=== PATIENT | female | born 1930 | race Caucasian/White ===

== ENCOUNTER 2017-11-20 02:28 | Emergency (ER) | payer OTHER ==
[~2017-11-20] VITALS: Ht 149.9 cm; Wt 40.0 kg
[~2017-11-20 02:28] MED LIST: ALBU1NEB10 INH; DEXT5LIQ23 PO; FERR1TAB62 PO; FRRS300 PO; GABA100C13 PO; HYDR-5688 PO; LVQ750 PO; MOME100A INH; NRN100 PO; OMEP40CA41 PO; TIOTCAP INH
[2017-11-20 02:32] VITALS: TEMP 36.7; Ht 149.9 cm; Wt 40.0 kg
[2017-11-20] MEDS ORDERED: ALBUT/IPRATROP 3MG/0.5MG NEB 3 ML VIAL INH STA (02:57)
[2017-11-20] MEDS ORDERED: METHYLPREDNISOLONE 125 MG VIAL IV STA (02:57)
--- NOTE | 2017-11-20 03:02 | EMERGENCY ROOM VISIT NOTE ---
History Report prepared by Roxana: Frieda Ruiz Under the Supervision of: Dr. Chhaya Crowley D.O. First contact with patient: 02:40 Chief Complaint: RESPIRATORY PROBLEMS Stated Complaint: ASTHMA, PAIN, COUGH History of Present Illness The patient is an 87 year old female who presents to the Emergency Room with complaints of constant respiratory problems beginning yesterday afternoon. Per daughter, the patient has asthma and has been coughing. Per daughter, the patient returned from the [facility] yesterday afternoon and reports that the patient was last hospitalized August 15 in the [facility] for respiratory problems. Her daughter states that she does not know the last time the patient was on steroids and reports that the flight from the [facility] was 28 hours long. Her daughter reports that the patient is seeing her doctor in 5 days. Source of History: patient, family (daughter) Onset: yesterday afternoon Position: other (generalized ) Quality: other (respiratory problems ) Timing: constant Associated Symptoms: + cough Review of Systems See HPI for pertinent positives & negatives. A total of 10 systems reviewed and were otherwise negative. Past Medical & Surgical Medical Problems: (1) Asthma (2) Bronchitis (3) Heart disease (4) Hypertension Family History Cancer Diabetes mellitus FH: heart disease Hypertension Social History Smoking Status: Never Smoker Alcohol Use: none Marital Status: Housing Status: lives with family Occupation Status: retired Current/Historical Medications Scheduled Amlodipine (Norvasc), 5 MG PO DAILY Azithromycin (Zithromax Z-Ramirez), 0 PO UD Budesonide/Formoterol Fumarate (Symbicort 160/4.5 Inhaler ), 2 PUFFS INH BID Ipratropium-Albuterol (Combivent Respimat), 2 PUFFS INH QID Multiple Vitamins W/ Minerals (Centrum Silver 50+Women), 1 TAB PO DAILY Prednisone (Prednisone Tab), 2 TABS PO DAILY Tiotropium [place] (Spiriva Handihaler), 1 CAP INH DAILY Scheduled PRN Albuterol Hfa (Ventolin Hfa), 2-4 PUFFS INH Q6H PRN for SOB/Wheezing [robitussin dm], 1 DOSE PO DIRECTED PRN for Cough Allergies Coded Allergies: No Known Allergies (Unverified , 11/20/17) Physical Exam Vital Signs Date Time Temp Pulse Resp B/P (MAP) Pulse Ox O2 Delivery O2 Flow Rate FiO2 11/20/17 05:19 78 20 141/82 93 Room Air 11/20/17 04:00 95 20 128/76 93 Room Air 11/20/17 03:39 98 28 145/79 94 Room Air 11/20/17 03:15 89 11/20/17 03:10 94 Room Air 11/20/17 02:32 36.7 94 20 129/77 92 Room Air Physical Exam HEENT: Head - normocephalic and atraumatic Pupils are equal, round, and reactive to light. Extraocular eye muscles are intact, and sclera are anicteric. Nose - moist nasal mucosa without discharge. Mouth - moist buccal mucosa. Oropharynx is nonerythematous and there is no tonsillar exudate or edema noted. Neck: Supple; no JVD, nuchal rigidity, cervical lymphadenopathy. Heart: Regular rate and rhythm. There is a normal S1 and S2 with no murmurs, clicks, or gallops appreciated. Lungs: Expiratory wheezing, left is worse than the right. No rales or rhonchi. Abdomen: Soft, nondistended, with good bowel sounds. Pain to palpation over the left flank. There are no palpable pulsatile masses or hepatosplenomegaly. There is no guarding, rigidity, or rebound noted. Extremities: No evidence of cyanosis, clubbing, or edema. There are easily palpable peripheral pulses. Skin: warm and dry with good turgor and no rashes. Medical Decision & Procedures ER Provider Diagnostic Interpretation: Radiology results as stated below per my review. Chest X-Ray: Mild peribronchiolar cuffing. Calcified aorta. No cardiomegaly. Compared to 07/2014. Radiology results as stated below per my review and [facility]. CT CHEST With Contrast: Comparison: CT chest 07/17/14 No evidence of pulmonary embolism. Evaluation for segmental and smaller pulmonary emboli is limited by motion artifact. No aortic aneurysm or dissection. Atherosclerotic calcifications of the aorta and its branches. Coronary artery calcifications. Bronchial wall thickening and partial opacification of bilateral upper lobe and left lower lobe bronchi, suggesting bronchitis. Evaluation of lung parenchyma also limited by motion artifact. Small region of groundglass density in right middle lobe measuring up to 1.2 cm (image 42, series 400). This is similar to prior exam, but slow-growing neoplasm not excluded. Thyroid nodules. Laboratory Results 11/20/17 03:10 Red Blood Count 4.18, Mean Corpuscular Volume 90.0, Mean Corpuscular Hemoglobin 30.9, Mean Corpuscular Hemoglobin Concent 34.3, Mean Platelet Volume 8.7, Neutrophils (%) (Auto) 39.4, Lymphocytes (%) (Auto) 38.9, Monocytes (%) (Auto) 8.4, Eosinophils (%) (Auto) 12.2, Basophils (%) (Auto) 1.0, Neutrophils # (Auto ) 3.25, Lymphocytes # (Auto) 3.20, Monocytes # (Auto) 0.69, Eosinophils # (Auto ) 1.00, Basophils # (Auto) 0.08 11/20/17 03:10 Test 11/20/17 03:10 11/20/17 03:34 White Blood Count 8.23 K/uL (4.8-10.8) Red Blood Count 4.18 M/uL (4.2-5.4) Hemoglobin 12.9 g/dL (12.0-16.0) Hematocrit 37.6 % (37-47) Mean Corpuscular Volume 90.0 fL (80-100) Mean Corpuscular Hemoglobin 30.9 pg (25-34) Mean Corpuscular Hemoglobin Concent 34.3 g/dl (32-36) Platelet Count 251 K/uL (130-400) Mean Platelet Volume 8.7 fL (7.4-10.4) Neutrophils (%) (Auto) 39.4 % Lymphocytes (%) (Auto) 38.9 % Monocytes (%) (Auto) 8.4 % Eosinophils (%) (Auto) 12.2 % Basophils (%) (Auto) 1.0 % Neutrophils # (Auto) 3.25 K/uL (1.4-6.5) Lymphocytes # (Auto) 3.20 K/uL (1.2-3.4) Monocytes # (Auto) 0.69 K/uL (0.11-0.59) Eosinophils # (Auto) 1.00 K/uL (0-0.5) Basophils # (Auto) 0.08 K/uL (0-0.2) RDW Standard Deviation 44.9 fL (36.4-46.3) RDW Coefficient of Variation 13.7 % (11.5-14.5) Immature Granulocyte % (Auto) 0.1 % Immature Granulocyte # (Auto) 0.01 K/uL (0.00-0.02) Anion Gap 5.0 mmol/L (3-11) Est Creatinine Clear Calc Drug Dose 31.7 ml/min Estimated GFR () 75.6 Estimated GFR (Non- 65.3 BUN/Creatinine Ratio 17.1 (10-20) Calcium Level 8.9 mg/dl (8.5-10.1) Troponin I < 0.015 ng/ml (0-0.045) Pro-B-Type Natriuretic Peptide 359 pg/ml (0-1800) Bedside D-Dimer > 450 ng/mlFEU (0-450) Laboratory results per my review. Medications Administered Medications (Trade) Dose Ordered Sig/Deena Route Start Time Stop Time Status Last Admin Dose Admin Albuterol/ Ipratropium (Duoneb) 3 ml NOW STAT INH 11/20/17 02:57 11/20/17 02:59 DC 11/20/17 03:06 3 ML Methylprednisolone Sodium Succinate (Solu-Medrol IV) 125 mg NOW STAT IV 11/20/17 02:57 11/20/17 02:59 DC 11/20/17 03:22 125 MG Procedure Medications administered: Methylprednisolone Sodium Succinate IV Duoneb INH ECG Per My Interpretation Indication: SOB/dyspnea Rate (beats per minute): 90 Rhythm: normal sinus Findings: no acute ischemic change, no ectopy, other (normal axis) ED Course 0249: Past medical records reviewed. The patient was evaluated in room A12B. A complete history and physical exam was performed. An IV lock was initiated and labs are drawn as above. A 12-lead EKG was obtained as described above. 0257: Ordered Methylprednisolone Sodium Succinate 125 mg IV, Duoneb 3 ml INH. A chest x-ray was obtained as described above. 0335: I checked on the patient. She is breathing more easily after the breathing treatment but is still coughing. Vital signs are stable. She will go for a CT scan. 0515: Upon reevaluation, the patient looks great and feels well. She is in no acute respiratory distress. I discussed findings and results of the CT scan with her and her daughter. She verbalized agreement of the treatment plan. She was discharged home. Medical Decision The patient is a 87 year old female who presents to the ED with respiratory problems. Differential diagnosis includes asthma exacerbation, pneumonia, pulmonary embolism, and bronchitis. Lab results showed No leukocytosis Stable H and H Negative troponin and BNP Normal renal function Normal glucose This is a an 87-year-old female patient with a history of asthma who presents to the emergency department with increased cough and shortness of breath. Patient just returned from a long airplane ride from the [facility]. The daughter explains that she has been using her inhalers frequently without relief of her symptoms. Chest x-ray had moderate peribronchial cuffing and there was some concern for bronchitis but no obvious signs of pneumonia. The patient had an elevated d-dimer and went for CT scan to rule out PE. There is no evidence of PE but some findings consistent with bronchitis. I reviewed the specific results of the CT scan with the patient and her daughter and requested that she have close follow-up with the PCP for repeat CAT scan within 6 months to year to rule out an enlarging mass. In the meantime, the patient was encouraged to use her Spiriva and Symbicort. I will prescribe Combivent to use every 6 hours and then she can use her rescue inhaler-Ventolin as needed in between. The patient will take a course of Zithromax as well as a burst of prednisone. The patient is scheduled to see a new PCP in 5 days. At that time , the patient can be reevaluated and they can order a nebulizer if need be. Medication Reconcilliation Current Medication List: was personally reviewed by me Blood Pressure Screening Patient's blood pressure: Normal blood pressure Impression Primary Impression: Bronchitis Additional Impression: Asthma exacerbation Scribe Attestation The scribe's documentation has been prepared under my direction and personally reviewed by me in its entirety. I confirm that the note above accurately reflects all work, treatment, procedures, and medical decision making performed by me. Departure Information Dispostion Home / Self-Care Prescriptions Azithromycin (ZITHROMAX Z-RAMIREZ) 250 Mg Tab 0 PO UD, #1 TAB 2 TABS DAY 1, THEN 1 TAB DAILY FOR 4 DAYS. Prov: Chhaya Crowley D.O. 11/20/17 Prednisone (Prednisone Tab) 20 Mg Tab 2 TABS PO DAILY for 4 Days, #8 TAB Prov: Chhaya Crowley D.O. 11/20/17 Ipratropium-Albuterol (COMBIVENT RESPIMAT) 1 Aer Aer 2 PUFFS INH QID, #1 INH Prov: Chhaya Crowley D.O. 11/20/17 Referrals No Doctor, Assigned (PCP) Alexis Avila M.D. Forms HOME CARE DOCUMENTATION FORM, IMPORTANT VISIT INFORMATION, WORK / SCHOOL INSTRUCTIONS Patient Instructions ED Bronchitis Asthmatic, My [facility] Additional Instructions Rest. Take prednisone daily for 4 days Take zithromax as directed. Combivent - 2 puffs every 6 hours then use ventolin as a rescue inhaler in between as needed. Follow up on Monday with PCP Problem Qualifiers Additional Impression: Asthma exacerbation Asthma severity: moderate Asthma persistence: persistent Qualified Codes: J45.41 - Moderate persistent asthma with (acute) exacerbation
[2017-11-20 03:10] VITALS: O2SAT 94
[2017-11-20 03:22] LABS: BASO ABS # 0.08 K/uL (0-0.2); EOS % 12.2 %; HEMATOCRIT 37.6 % (37-47); HEMOGLOBIN 12.9 g/dL (12.0-16.0); IG# 0.01 K/uL (0.00-0.02); LYMPH % 38.9 %; MEAN CORPUSCULAR HEMOGLOBIN 30.9 pg (25-34); MEAN CORPUSCULAR HGB CONC 34.3 g/dl (32-36); MEAN PLATELET VOLUME 8.7 fL (7.4-10.4); MONO % 8.4 %; MONO ABS # 0.69 K/uL (0.11-0.59); NEUT % 39.4 %; NEUT ABS # 3.25 K/uL (1.4-6.5); PLATELET COUNT 251 K/uL (130-400); RED CELL DISTRIBUTION WIDTH CV 13.7 % (11.5-14.5); RED CELL DISTRIBUTION WIDTH SD 44.9 fL (36.4-46.3); WHITE BLOOD COUNT 8.23 K/uL (4.8-10.8)
[2017-11-20] MEDS ORDERED: MULT-1092 PO (03:33)
[2017-11-20] MEDS ORDERED: AMLO-110 PO (03:33)
[2017-11-20] MEDS ORDERED: SYMIN160 INH (03:34)
[2017-11-20] MEDS ORDERED: robitussin dm PO (03:36)
[2017-11-20] MEDS ORDERED: VNTHFA/IN INH (03:37)
[2017-11-20 03:39] LABS: BLOOD UREA NITROGEN 14 mg/dl (7-18); CALCIUM 8.9 mg/dl (8.5-10.1); CARBON DIOXIDE 28 mmol/L (21-32); CREATININE 0.82 mg/dl (0.60-1.20); GLUCOSE 93 mg/dl (70-99); POTASSIUM 3.7 mmol/L (3.5-5.1); SODIUM 138 mmol/L (136-145)
[2017-11-20] MEDS ORDERED: OPTIRAY 320 IV PRN (04:00)
[2017-11-20 05:19] VITALS: BP 141/82; PULSE 78; O2SAT 93
[2017-11-20] MEDS ORDERED: IPRA1AER2 INH (05:19)
[2017-11-20] MEDS ORDERED: AZITTAB PO (05:19)
[2017-11-20] MEDS ORDERED: PRED20TA2 PO (05:19)
--- NOTE | 2017-11-20 06:32 | DIAGNOSTIC IMAGING REPORT ---
CHEST 2 VIEWS ROUTINE HISTORY: 87 years-old Female asthma/cough acute cough with atypical chest pain COMPARISON: Chest radiograph 07/27/2014, CTA of the chest 11/20/2014 TECHNIQUE: PA and lateral views of the chest FINDINGS: Cardiomediastinal and hilar silhouettes are within normal limits. Atherosclerosis of the aorta. No pneumothorax, pleural effusion, focal airspace consolidation or overt pulmonary edema. The lungs are mildly hyperinflated. Degenerative changes of the spine are noted. IMPRESSION: Mild hyperinflation without acute process. The above report was generated using voice recognition software. It may contain grammatical, syntax or spelling errors. Electronically signed by: David Minaya M.D. 11/20/2017 6:31 AM Dictated Date/Time: 11/20/2017 6:30 AM
--- NOTE | 2017-11-20 06:57 | DIAGNOSTIC IMAGING REPORT ---
(CHEST FOR PE) ANGIO WITH CT DOSE: 165.83 mGy.cm HISTORY: 87 years-old Female presents with acute cough and chest pain TECHNIQUE: Multiple CTA images of the chest were obtained after the intravenous administration of 66 ml Optiray 320. Coronal and sagittal MIPS were obtained from the axial data set and were submitted for review. A dose lowering technique was utilized adhering to the principles of ALARA. COMPARISON: Chest radiograph of same day, CTA chest 07/27/2014 FINDINGS: CTA: Mild multichamber cardiac enlargement. Coronary arterial calcifications are noted. No aortic aneurysm or dissection. Moderate to severe calcification of the aorta. Proximal great vessels appear patent. Evaluation of the segmental and subsegmental pulmonary arterial branches is limited secondary to respiratory motion. No focal filling defects identified to suggest pulmonary thromboembolic disease. CT CHEST: Bilateral thyroid nodules measure up to 10 mm on the right. There is no pathologic adenopathy identified. No pneumothorax, pleural effusion or lobar airspace consolidation. Minimal dependent subsegmental bibasilar atelectasis. The central airways are patent. There is a 1.5 cm groundglass opacity of the right middle lobe seen on image 119 series 4 which is unchanged from comparison study 07/27/2014. No acute process of the imaged upper abdomen. Soft tissues are unremarkable. Bones appear intact. Multilevel degenerative changes about the spine. IMPRESSION: 1. No acute intrathoracic abnormality identified, specifically no acute aortic pathology or evidence of pulmonary thromboembolic disease. 2. 1.5 cm groundglass opacity of the right middle lobe appears stable from 07/27/2014 favoring focal area of scarring with low-grade neoplasm felt to be less likely. 3. No lobar airspace consolidation or pathologic adenopathy. The above report was generated using voice recognition software. It may contain grammatical, syntax or spelling errors. Electronically signed by: David Minaya M.D. 11/20/2017 6:55 AM Dictated Date/Time: 11/20/2017 6:48 AM
== END 2017-11-20 05:17 | disposition home or self-care (01) ==
LOC: C.EDB 02:29 → C.EDA 05:17
DX: J40 Bronchitis, not specified as acute or chronic (principal); J45.41 Moderate persistent asthma with (acute) exacerbation; I10 Essential (primary) hypertension; Z79.51 Long term (current) use of inhaled steroids; Z79.899 Other long term (current) drug therapy

== ENCOUNTER 2017-11-28 11:15 | Emergency (ER) | payer OTHER ==
[~2017-11-28] VITALS: Ht 142.2 cm; Wt 39.0 kg
[~2017-11-28 11:15] MED LIST changes: -ALBU1NEB10 INH; +AMLO-110 PO; +AZITTAB PO; -DEXT5LIQ23 PO; -FERR1TAB62 PO; -FRRS300 PO; -GABA100C13 PO; -HYDR-5688 PO; +IPRA1AER2 INH; -LVQ750 PO; -MOME100A INH; +MULT-1092 PO; -NRN100 PO; -OMEP40CA41 PO; +SYMIN160 INH; +VNTHFA/IN INH; +robitussin dm PO
[2017-11-28 11:18] VITALS: TEMP 36.8; Ht 142.2 cm; Wt 39.0 kg
[2017-11-28] MEDS ORDERED: ACETAMINOPHEN IV 100 ML IV STA (11:55)
[2017-11-28] MEDS ORDERED: SODIUM CHLORIDE 0.9% 500ML 500 ML IV STA (11:55)
[2017-11-28] MEDS ORDERED: ONDANSETRON INJ 2 MG/ML 2 ML VIAL IV STA (11:55)
[2017-11-28] MEDS ORDERED: FAMOTIDINE 20MG/5ML IV PUSH IV STA (11:55)
[2017-11-28] MEDS ORDERED: SPRIN/30 INH (12:05)
[2017-11-28] MEDS ORDERED: OPTIRAY 320 IV PRN (12:15)
[2017-11-28 12:26] LABS: BASO % 0.2 %; BASO ABS # 0.02 K/uL (0-0.2); EOS % 3.8 %; EOS ABS # 0.41 K/uL (0-0.5); HEMATOCRIT 39.4 % (37-47); HEMOGLOBIN 13.4 g/dL (12.0-16.0); IG# 0.02 K/uL (0.00-0.02); LYMPH % 25.2 %; LYMPH ABS # 2.69 K/uL (1.2-3.4); MEAN CELL VOLUME 89.7 fL (80-100); MEAN CORPUSCULAR HEMOGLOBIN 30.5 pg (25-34); MEAN PLATELET VOLUME 8.3 fL (7.4-10.4); MONO % 7.5 %; NEUT % 63.1 %; NEUT ABS # 6.74 K/uL (1.4-6.5); PLATELET COUNT 245 K/uL (130-400); RED CELL DISTRIBUTION WIDTH SD 45.7 fL (36.4-46.3); WHITE BLOOD COUNT 10.68 K/uL (4.8-10.8)
[2017-11-28 12:56] LABS: ALBUMIN 3.8 gm/dl (3.4-5.0); ALKALINE PHOSPHATASE 51 U/L (45-117); ALT/SGPT 37 U/L (12-78); BLOOD UREA NITROGEN 19 mg/dl (7-18); CALCIUM 8.6 mg/dl (8.5-10.1); CARBON DIOXIDE 28 mmol/L (21-32); CREATININE 0.86 mg/dl (0.60-1.20); GLUCOSE 101 mg/dl (70-99); LIPASE 359 U/L (73-393); TOTAL PROTEIN 8.5 gm/dl (6.4-8.2)
[2017-11-28 13:06] LABS: AST/SGOT 18 U/L (15-37); POTASSIUM 4.5 mmol/L (3.5-5.1); SODIUM 132 mmol/L (136-145)
--- NOTE | 2017-11-28 13:43 | DIAGNOSTIC IMAGING REPORT ---
CT SCAN OF THE ABDOMEN AND PELVIS WITH IV CONTRAST CLINICAL HISTORY: Generalized abdominal pain. Constipation. COMPARISON STUDY: No priors. TECHNIQUE: Following the IV administration of 94 cc of Optiray 320, CT scan of the abdomen and pelvis is performed from the lung bases to the proximal femora. Images are reviewed in the axial, sagittal, and coronal planes. IV contrast was administered without complication. A dose lowering technique was utilized adhering to the principles of ALARA. CT DOSE: 270.51 mGy.cm FINDINGS: Lung bases: The heart is mildly enlarged and without pericardial effusion. The coronary arteries and aortic valve leaflets are densely calcified. There is a small hiatal hernia. Fat-containing Bochdalek hernias are seen at both lung bases. There is no airspace consolidation or pleural effusion. Scarring/atelectasis is noted in the lower lobes. Liver: The contrast-enhanced liver is normal in size, contour, and attenuation. There is no intrahepatic biliary ductal dilatation. The hepatic veins and portal veins are patent. Scattered hepatic hypodensities measuring up to 8 mm likely represent cysts but are too small for definitive characterization. Gallbladder: Unremarkable. Spleen: Normal in size and attenuation. Pancreas: Unremarkable. Adrenal glands: Unremarkable. Kidneys: The contrast enhanced kidneys are atrophic. There is mild bilateral hydronephrosis, likely related to the markedly distended bladder. The kidneys enhance symmetrically. Right renal cysts measure up to 2.5 cm Abdominal vasculature: The abdominal aorta is normal in course and caliber noting advanced atherosclerotic calcification. Bowel: There is no bowel obstruction. Moderate to severe constipation is identified. The colon is redundant/tortuous. The appendix is not identified and reported surgically absent. Peritoneum: There is no intraperitoneal free air or abdominal ascites. Lymphadenopathy: None. Pelvic viscera: The bladder is distended and grossly unremarkable. The uterus is atrophic. No adnexal lesion is seen. Skeletal structures: The skeletal structures are osteopenic. There are moderate compression deformities of L4 and L5. A mild superior end plate compression deformities seen involving L2. There is an age indeterminant and likely chronic insufficiency fracture of the right sacral ala. Lumbosacral spondylosis is observed. There are healed left-sided rib fractures. Advanced sclerotic change is seen at the symphysis pubis. Sclerotic change is also noted in the sacroiliac joints. No lytic or blastic lesions are seen. IMPRESSION: 1. Moderate to severe constipation. 2. No bowel obstruction is seen. 3. There are lumbar compression deformities as well as an insufficiency fracture of the right sacrum as above. These are age indeterminant and likely chronic. Clinical correlation will be required. 4. Mild cardiomegaly. 5. There is mild bilateral hydronephrosis, likely related to the markedly distended bladder. No obstructing lesion is seen. 6. Additional findings as above. Electronically signed by: Skyler Youssef M.D. 11/28/2017 1:42 PM Dictated Date/Time: 11/28/2017 1:33 PM
[2017-11-28] MEDS ORDERED: METOCLOPRAMIDE HCL INJ 5 MG/ML 2 ML VIAL IV STA (13:52)
[2017-11-28] MEDS ORDERED: SOD PHOSPHATE/SOD BIPHOSPHATE ENEMA 132 ML BTL PR STA (13:52)
[2017-11-28] MEDS ORDERED: MAGNESIUM CITRATE 296 ML/BTL PO STA (13:52)
[2017-11-28] MEDS ORDERED: DOCU-94 PO (15:39)
--- NOTE | 2017-11-28 15:46 | EMERGENCY ROOM VISIT NOTE ---
History Report prepared by Roxana: Lino Fraga Under the Supervision of: Dr. Jimy Arevalo M.D. First contact with patient: 11:33 Chief Complaint: ABDOMINAL PAIN Stated Complaint: ABDOMINAL PAIN History of Present Illness The patient is a 87 year old female who presents to the Emergency Room with complaints of constant abdominal pain beginning four hours ago. History obtained per patient's daughter. She states that the patient has also been vomiting. The patient has a history of constipation. Her last normal bowel movement was last night. She describes her recent bowel movements as "hard". The patient has taken Pepto Bismol and a laxative, but nothing has improved her symptoms. She currently complains of nausea. She denies urinary symptoms, fevers , chills, cough, or congestion.. The patient was seen in the ED four days ago for breathing difficulties. She has been eating and drinking normally. Source of History: family (daughter) Onset: Four hours ago Position: abdomen Timing: constant Modifying Factors (Relieving): other (none) Associated Symptoms: + nausea, + vomiting, No fevers, No chills, No cough, No urinary symptoms Note: Negative: congestion. Review of Systems See HPI for pertinent positives and negatives. A total of ten systems were reviewed and were otherwise negative. Past Medical & Surgical Medical Problems: (1) Asthma (2) Bronchitis (3) Heart disease (4) Hypertension Family History Cancer Diabetes mellitus FH: heart disease Hypertension Social History Smoking Status: Never Smoker Alcohol Use: none Marital Status: Housing Status: lives with family Occupation Status: retired Current/Historical Medications Scheduled Amlodipine (Norvasc), 5 MG PO DAILY Budesonide/Formoterol Fumarate (Symbicort 160/4.5 Inhaler ), 2 PUFFS INH BID Docusate Sodium (Colace), 1 CAP PO BID Ipratropium-Albuterol (Combivent Respimat), 2 PUFFS INH QID Multiple Vitamins W/ Minerals (Centrum Silver 50+Women), 1 TAB PO DAILY Tiotropium [place] (Spiriva Handihaler), 1 CAP INH DAILY Scheduled PRN Albuterol Hfa (Ventolin Hfa), 2-4 PUFFS INH Q6H PRN for SOB/Wheezing [robitussin dm], 1 DOSE PO DIRECTED PRN for Cough Allergies Coded Allergies: No Known Allergies (Unverified , 11/28/17) Physical Exam Vital Signs Date Time Temp Pulse Resp B/P (MAP) Pulse Ox O2 Delivery O2 Flow Rate FiO2 11/28/17 16:04 76 137/72 96 11/28/17 15:13 78 102/53 96 Room Air 11/28/17 13:47 76 140/78 98 Room Air 11/28/17 11:18 36.8 74 18 151/69 97 Room Air Physical Exam GENERAL: Awake, alert, fatigued, uncomfortable-appearing, in no distress HENT: Normocephalic, atraumatic. Oropharynx unremarkable. Mucous membranes are dry. EYES: Normal conjunctiva. Sclera non-icteric. NECK: Supple. No nuchal rigidity. FROM. No JVD. RESPIRATORY: Clear to auscultation. CARDIAC: Regular rate, normal rhythm. Extremities warm and well perfused. Pulses equal. ABDOMEN: Soft, non-distended. Generalized abdominal tenderness. No peritoneal signs. No rebound or guarding. No masses. RECTAL: Deferred. MUSCULOSKELETAL: Chest examination reveals no tenderness. The back is symmetrical on inspection without obvious abnormality. There is no CVA tenderness to palpation. No joint edema. LOWER EXTREMITIES: Calves are equal size bilaterally and non-tender. No edema. No discoloration. NEURO: Normal sensorium. No sensory or motor deficits noted. SKIN: No rash or jaundice noted. Medical Decision & Procedures ER Provider Diagnostic Interpretation: Radiology results as stated below per my review and radiologist interpretation: CT SCAN OF THE ABDOMEN AND PELVIS WITH IV CONTRAST FINDINGS: Lung bases: The heart is mildly enlarged and without pericardial effusion. The coronary arteries and aortic valve leaflets are densely calcified. There is a small hiatal hernia. Fat-containing Bochdalek hernias are seen at both lung bases. There is no airspace consolidation or pleural effusion. Scarring/atelectasis is noted in the lower lobes. Liver: The contrast-enhanced liver is normal in size, contour, and attenuation. There is no intrahepatic biliary ductal dilatation. The hepatic veins and portal veins are patent. Scattered hepatic hypodensities measuring up to 8 mm likely represent cysts but are too small for definitive characterization. Gallbladder: Unremarkable. Spleen: Normal in size and attenuation. Pancreas: Unremarkable. Adrenal glands: Unremarkable. Kidneys: The contrast enhanced kidneys are atrophic. There is mild bilateral hydronephrosis, likely related to the markedly distended bladder. The kidneys enhance symmetrically. Right renal cysts measure up to 2.5 cm Abdominal vasculature: The abdominal aorta is normal in course and caliber noting advanced atherosclerotic calcification. Bowel: There is no bowel obstruction. Moderate to severe constipation is identified. The colon is redundant/tortuous. The appendix is not identified and reported surgically absent. Peritoneum: There is no intraperitoneal free air or abdominal ascites. Lymphadenopathy: None. Pelvic viscera: The bladder is distended and grossly unremarkable. The uterus is atrophic. No adnexal lesion is seen. Skeletal structures: The skeletal structures are osteopenic. There are moderate compression deformities of L4 and L5. A mild superior end plate compression deformities seen involving L2. There is an age indeterminant and likely chronic insufficiency fracture of the right sacral ala. Lumbosacral spondylosis is observed. There are healed left-sided rib fractures. Advanced sclerotic change is seen at the symphysis pubis. Sclerotic change is also noted in the sacroiliac joints. No lytic or blastic lesions are seen. IMPRESSION: 1. Moderate to severe constipation. 2. No bowel obstruction is seen. 3. There are lumbar compression deformities as well as an insufficiency fracture of the right sacrum as above. These are age indeterminant and likely chronic. Clinical correlation will be required. 4. Mild cardiomegaly. 5. There is mild bilateral hydronephrosis, likely related to the markedly distended bladder. No obstructing lesion is seen. 6. Additional findings as above. Electronically signed by: Skyler Youssef M.D. 11/28/2017 1:42 PM Laboratory Results 11/28/17 12:16 Red Blood Count 4.39, Mean Corpuscular Volume 89.7, Mean Corpuscular Hemoglobin 30.5, Mean Corpuscular Hemoglobin Concent 34.0, Mean Platelet Volume 8.3, Neutrophils (%) (Auto) 63.1, Lymphocytes (%) (Auto) 25.2, Monocytes (%) (Auto) 7.5, Eosinophils (%) (Auto) 3.8, Basophils (%) (Auto) 0.2, Neutrophils # (Auto) 6.74, Lymphocytes # (Auto) 2.69, Monocytes # (Auto) 0.80, Eosinophils # (Auto) 0.41, Basophils # (Auto) 0.02 11/28/17 12:16 Test 11/28/17 12:16 White Blood Count 10.68 K/uL (4.8-10.8) Red Blood Count 4.39 M/uL (4.2-5.4) Hemoglobin 13.4 g/dL (12.0-16.0) Hematocrit 39.4 % (37-47) Mean Corpuscular Volume 89.7 fL (80-100) Mean Corpuscular Hemoglobin 30.5 pg (25-34) Mean Corpuscular Hemoglobin Concent 34.0 g/dl (32-36) Platelet Count 245 K/uL (130-400) Mean Platelet Volume 8.3 fL (7.4-10.4) Neutrophils (%) (Auto) 63.1 % Lymphocytes (%) (Auto) 25.2 % Monocytes (%) (Auto) 7.5 % Eosinophils (%) (Auto) 3.8 % Basophils (%) (Auto) 0.2 % Neutrophils # (Auto) 6.74 K/uL (1.4-6.5) Lymphocytes # (Auto) 2.69 K/uL (1.2-3.4) Monocytes # (Auto) 0.80 K/uL (0.11-0.59) Eosinophils # (Auto) 0.41 K/uL (0-0.5) Basophils # (Auto) 0.02 K/uL (0-0.2) RDW Standard Deviation 45.7 fL (36.4-46.3) RDW Coefficient of Variation 14.0 % (11.5-14.5) Immature Granulocyte % (Auto) 0.2 % Immature Granulocyte # (Auto) 0.02 K/uL (0.00-0.02) Urine Color YELLOW Urine Appearance CLEAR (CLEAR) Urine pH 8.0 (4.5-7.5) Urine Specific [place] 1.013 (1.000-1.030) Urine Protein NEG (NEG) Urine Glucose (UA) NEG (NEG) Urine Ketones NEG (NEG) Urine Occult Blood NEG (NEG) Urine Nitrite NEG (NEG) Urine Bilirubin NEG (NEG) Urine Urobilinogen NEG (NEG) Urine Leukocyte Esterase NEG (NEG) Urine WBC (Auto) 0 /hpf (0-5) Urine RBC (Auto) 0-4 /hpf (0-4) Urine Hyaline Casts (Auto) 1-5 /lpf (0-5) Urine Epithelial Cells (Auto) 5-10 /lpf (0-5) Urine Bacteria (Auto) NEG (NEG) Anion Gap 5.0 mmol/L (3-11) Est Creatinine Clear Calc Drug Dose 27.4 ml/min Estimated GFR () 71.4 Estimated GFR (Non- 61.6 BUN/Creatinine Ratio 21.6 (10-20) Lactic Acid Level 1.0 mmol/L (0.4-2.0) Calcium Level 8.6 mg/dl (8.5-10.1) Total Bilirubin 0.6 mg/dl (0.2-1) Direct Bilirubin 0.2 mg/dl (0-0.2) Aspartate Amino Transf (AST/SGOT) 18 U/L (15-37) Alanine Aminotransferase (ALT/SGPT) 37 U/L (12-78) Alkaline Phosphatase 51 U/L (45-117) Troponin I < 0.015 ng/ml (0-0.045) Total Protein 8.5 gm/dl (6.4-8.2) Albumin 3.8 gm/dl (3.4-5.0) Lipase 359 U/L (73-393) Laboratory results reviewed by me Medications Administered Medications (Trade) Dose Ordered Sig/Deena Route Start Time Stop Time Status Last Admin Dose Admin Sodium Chloride 500 ml @ 999 mls/hr Q31M STAT IV 11/28/17 11:55 11/28/17 12:25 DC 11/28/17 12:25 999 MLS/HR Ondansetron HCl (Zofran Inj) 4 mg NOW STAT IV 11/28/17 11:55 11/28/17 11:57 DC 11/28/17 12:24 4 MG Acetaminophen 100 ml @ 400 mls/hr NOW STAT IV 11/28/17 11:55 11/28/17 12:09 DC 11/28/17 12:25 400 MLS/HR Famotidine (Pepcid 20mg Iv Push) 20 mg ONE STAT IV 11/28/17 11:55 11/28/17 11:57 DC 11/28/17 12:24 20 MG Metoclopramide HCl (Reglan Inj) 10 mg NOW STAT IV 11/28/17 13:52 11/28/17 13:54 DC 11/28/17 14:19 10 MG Magnesium Citrate (Citrate Of Magnesia Soln) 296 ml NOW STAT PO 11/28/17 13:52 11/28/17 13:54 DC 11/28/17 14:19 296 ML Sodium Biphosphate/ Sodium Phosphate (Fleet Enema) 132 ml NOW STAT DE 11/28/17 13:52 11/28/17 13:54 DC 11/28/17 14:20 132 ML ECG Per My Interpretation Indication: abdominal pain Rate (beats per minute): 69 Rhythm: normal sinus Findings: other (Non-specific T-wave abnormality. Normal axis. No ST elevations /depressions.) ED Course 1148: The patient was evaluated in room B8. A complete history and physical exam was performed. 1155: Ordered Pepcid 20 mg IV, Acetaminophen 100 mL @ 400 mL/hr IV, Zofran Inj 4 mg IV, Sodium Chloride 500 ml @ 999 mls/hr IV. 1352: Ordered Fleet Enema 132 mL DE, Citrate of Magnesia 296 mL PO, Reglan Inj 10 mg IV. 1545: I reevaluated the patient. Discussed results and discharge instructions: she verbalized understanding and agreement. The patient is ready for discharge. Medical Decision I reviewed the patient's past medical history, medications, and the nursing notes as described above. Differential diagnosis: Etiologies such as appendicitis, diverticulitis, PUD, biliary pathology, UTI, pancreatitis, obstruction, mesenteric ischemia, aortic pathology, infections, inflammatory bowel disease, renal colic, as well as others were entertained. The patient is an 87 y/o woman who presents to the emergency department with generalized abdominal pain in the setting of hard BM with straining per HPI. On arrival the patient is uncomfortable but in NAD, AFVSS. Mild generalized abdominal ttp. No peritoneal signs. Appears clinically dry. Labs unremarkable including WBC and lactate wnl. No evidence of acidosis. CT abd pelvis with moderate to severe constipation. Patient given reglan, magnesium citrate, and Fleet enema with small BM. D/w patient and her daughter at bedside and agree with plan to home home and continue bowel regimen. Plan for pcp f/u. Findings and plan for follow-up reviewed with patient. Patient agreeable and d/c'd per discharge instructions. Medication Reconcilliation Current Medication List: was personally reviewed by me Blood Pressure Screening Patient's blood pressure: Normal blood pressure Blood pressure disposition: Did not require urgent referral Impression Primary Impression: Constipation Scribe Attestation The scribe's documentation has been prepared under my direction and personally reviewed by me in its entirety. I confirm that the note above accurately reflects all work, treatment, procedures, and medical decision making performed by me. Departure Information Dispostion Home / Self-Care Prescriptions Docusate Sodium (COLACE) 100 Mg Cap 1 CAP PO BID for 15 Days, #30 CAP Prov: Jimy Arevalo M.D. 11/28/17 Referrals Alexis Avila M.D. (PCP) Patient Instructions ED Constipation, My [facility] Additional Instructions Please follow up with your primary care physician in the next 1-3 days for re- evaluation. You were found to have severe constipation. Otherwise, your exam, EKG, chest xray, lab results and CT scan did not show signs of an emergent condition at this time. Colace as directed for stool softening. Fleet enemas as needed for additional constipation relief. Drink plenty of fluids to ensure hydration. Return to the emergency department for worsening symptoms as described in the accompanying instructions.
[2017-11-28 16:04] VITALS: BP 137/72; PULSE 76; O2SAT 96
== END 2017-11-28 16:06 | disposition home or self-care (01) ==
LOC: C.EDB 11:16
DX: R10.84 Generalized abdominal pain (principal); K59.00 Constipation, unspecified; R11.2 Nausea with vomiting, unspecified; I10 Essential (primary) hypertension; I51.9 Heart disease, unspecified; I51.7 Cardiomegaly